=== PATIENT | male | born 1985 | race Caucasian/White ===

== ENCOUNTER → 2017-08-14 | Outpatient (CLI) | payer OTHER | END | disposition home or self-care (01) | LOC: WOUND 13:38 | PROVIDERS: ATTEND Family Medicine | DX: S61.432D Puncture wound without foreign body of left hand, subsequent encounter (principal); Z72.89 Other problems related to lifestyle; X58.XXXD Exposure to other specified factors, subsequent encounter | CPT/HCPCS: 99214 ==

== ENCOUNTER → 2017-08-28 | Outpatient (CLI) | payer OTHER | END | disposition home or self-care (01) | LOC: WOUND 10:30 | PROVIDERS: ATTEND Family Medicine | DX: S61.432D Puncture wound without foreign body of left hand, subsequent encounter (principal); Z72.89 Other problems related to lifestyle; W26.0XXD Contact with knife, subsequent encounter | CPT/HCPCS: 97597 ==

== ENCOUNTER → 2017-08-28 | Outpatient (CLI) | payer OTHER | END | disposition home or self-care (01) | LOC: CFH 11:28 | PROVIDERS: ATTEND Family Medicine | DX: M79.642 Pain in left hand (principal) ==